=== PATIENT | female | born 1965 | race Caucasian/White ===

== ENCOUNTER 2016-08-21 11:59 | Emergency (ER) | payer SELFPAY ==
[~2016-08-21] VITALS: Ht 160 cm; Wt 82.0 kg
[2016-08-21 12:08] VITALS: BP 165/93
== END 2016-08-21 15:08 | disposition left against medical advice (07) ==
LOC: ER 14:53
DX: R10.9 Unspecified abdominal pain (principal); E11.9 Type 2 diabetes mellitus without complications; I10 Essential (primary) hypertension; E03.8 Other specified hypothyroidism
CPT/HCPCS: X7700; Z7610